=== PATIENT | female | born 1995 | race Caucasian/White ===

== ENCOUNTER 2019-03-15 01:23 | Emergency (ER) | payer OTHER ==
[2019-03-15] MEDS ORDERED: NA CHLORIDE 0.9% 1,000 ML ONE (01:55)
[2019-03-15] MEDS ORDERED: ONDANSETRON 4 MG/2 ML VIAL ONE (01:55)
[2019-03-15 02:37] LABS: Basophils % 1.2 % (0-1.3); Hematocrit 40.8 % (36.0-45.0); Lymphocytes % 24.2 % (15.3-44.8); MPV 8.2 fL (7.6-11.3); RBC Red Blood Cell Count 4.62 M/uL (3.86-4.86)
[2019-03-15 02:41] LABS: Urine Blood TRACE (NEG); Urine Glucose NEGATIVE (NEG); Urine Protein 1+ (NEG); Urine Specific Gravity >1.030 (1.005-1.030)
[2019-03-15 02:52] LABS: ALT/SGPT 44 U/L (12-78); AST/SGOT 23 U/L (15-37); Albumin 3.8 g/dL (3.4-5.0); Alkaline Phosphatase 114 U/L (45-117); BUN Blood Urea Nitrogen 6 mg/dL (7-18); Bicarbonate 24 mmol/L (21-32); Bilirubin Direct 0.2 mg/dL (0-0.2); Bilirubin Total 0.8 mg/dL (0.2-1.0); Glucose Level 86 mg/dL (74-106); Lipase 108 U/L (73-393); Potassium 3.6 mmol/L (3.5-5.1); Protein, Total 8.3 g/dL (6.4-8.2); Sodium Level 138 mmol/L (136-145)
--- NOTE | 2019-03-15 03:26 | ER ---
Nurse's Notes [facility] Name: Jaycee Scherer Age: 23 yrs Sex: Female : 1995 Arrival Date: 03/15/2019 Time: 01:26 Bed 5 Private MD: Diagnosis: Vomiting Presentation: 03/15 01:39 Presenting complaint: Patient states: N/V and anxiety attack since approx 2030 last aa1 night. Transition of care: patient was not received from another setting of care. Onset of symptoms was March 14, 2019 at 20:30. Risk Assessment: Do you want to hurt yourself or someone else? Patient reports no desire to harm self or others. Initial Sepsis Screen: Does the patient meet any 2 criteria? No. Patient's initial sepsis screen is negative. Does the patient have a suspected source of infection? No. Patient's initial sepsis screen is negative. Care prior to arrival: None. 01:39 Method Of Arrival: Ambulatory aa1 01:39 Acuity: GISEL 3 aa1 Triage Assessment: 01:39 General: Appears in no apparent distress. comfortable, Behavior is calm, cooperative, aa1 appropriate for age. Pain: Denies pain. 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 - Social history:: Smoking status: Patient/guardian denies using tobacco. - Ebola Screening: : No symptoms or risks identified at this time. Screenin:21 Abuse screen: Denies threats or abuse. Denies injuries from another. Nutritional lp1 screening: No deficits noted. Tuberculosis screening: No symptoms or risk factors identified. Fall Risk None identified. Assessment: 02:20 General: Appears in no apparent distress. Behavior is calm, cooperative, appropriate lp1 for age. Pain: Complains of pain in abdomen. Neuro: Level of Consciousness is awake, alert, obeys commands, Oriented to person, place, time, situation. Cardiovascular: Patient's skin is warm and dry. Respiratory: Respiratory effort is even, unlabored. GI: Abdomen is non-distended, Bowel sounds present X 4 quads. Reports lower abdominal pain, upper abdominal pain, nausea, vomiting. : No signs and/or symptoms were reported regarding the genitourinary system. EENT: No signs and/or symptoms were reported regarding the EENT system. Derm: Skin is pink, warm \T\ dry. Musculoskeletal: No deficits noted. 03:56 Reassessment: Patient and/or family updated on plan of care and expected duration. Pain ea level reassessed. Patient is alert, oriented x 3, equal unlabored respirations, skin warm/dry/pink. Discharge instruction given to patient, verbalized the understanding of instruction. Pt left ED ambulatory, with significant other, pt tolerating well. Vital Signs: 01:39 BP 114 / 70; Pulse 94; Resp 18; Temp 98.7; Pulse Ox 96% on R/A; Weight 99.79 kg; Height aa1 5 ft. 7 in. (170.18 cm); Pain 0/10; 02:30 BP 120 / 79; Pulse 80; Resp 16; Pulse Ox 97% on R/A; lp1 03:30 BP 116 / 76; Pulse 83; Resp 16; Pulse Ox 96% on R/A; lp1 03:57 BP 121 / 76; Pulse 80; Resp 18; Temp 97.8; Pulse Ox 98% on R/A; ea 01:39 Body Mass Index 34.46 (99.79 kg, 170.18 cm) aa1 ED Course: 01:26 Patient arrived in ED. ds1 01:34 Braxton Reese PA is PHCP. jmm 01:34 Otto Rollins MD is Attending Physician. jmm 01:39 Arm band placed on right wrist. Patient placed in an exam room, on a stretcher. aa1 01:45 Mansi Davis, AUBREY is Primary Nurse. lp1 01:48 Triage completed. aa1 02:05 Missed attempt(s): 22 gauge in right antecubital area. Inserted saline lock: 20 gauge lp1 in left antecubital area, using aseptic technique. Blood collected. 02:21 Patient has correct armband on for positive identification. Pulse ox on. NIBP on. lp1 03:23 Medhat Billy MD is Referral Physician. jmm 03:57 No provider procedures requiring assistance completed. IV discontinued, intact, ea bleeding controlled, No redness/swelling at site. Pressure dressing applied. Administered Medications: 02:05 Drug: NS 0.9% 1000 ml Route: IV; Rate: 1 bolus; Site: left antecubital; lp1 03:50 Follow up: Response: No adverse reaction; IV Status: Completed infusion; IV Intake: ea 1000ml 02:15 Drug: Zofran 4 mg Route: IVP; Site: left antecubital; lp1 03:00 Follow up: Response: No adverse reaction ea 03:52 Drug: GI Cocktail without - (Maalox Suspension 30 ml, Lidocaine Liquid 2 % 15 ea ml) Route: PO; 03:59 Follow up: Response: Medication administered at discharge. ea Intake: 03:50 IV: 1000ml; Total: 1000ml. ea Outcome: 03:24 Discharge ordered by . celia 03:57 Discharged to home ambulatory, with significant other. ea 03:57 Condition: stable 03:57 Instructed on discharge instructions, follow up and referral plans. medication usage, Demonstrated understanding of instructions, follow-up care, medications, Prescriptions given X 2. 03:58 Patient left the ED. ea Signatures: Susana Campos RN RN aa1 Braxton Reese PA PA jmm Sanford, Demi ds1 Mansi Davis RN RN lp1 Agnieszka Muhammad RN RN ea
--- NOTE | 2019-03-15 03:28 | EDPHYS ---
Physician Documentation [facility] Name: Jaycee Scherer Age: 23 yrs Sex: Female : 1995 Arrival Date: 03/15/2019 Time: 01:26 Bed 5 Private MD: ED Physician Otto Rollins HPI: 03/15 01:41 This 23 yrs old Female presents to ER via Unassigned with complaints of jmm Vomiting, Anxiety. 01:41 The patient presents to the emergency department with nausea, vomiting. Onset: The jmm symptoms/episode began/occurred gradually, 3 week(s) ago. Possible causes: unknown. The symptoms are aggravated by nothing. The symptoms are alleviated by food . This is a 23 year old female with a history of anxiety that presents to the ED with complaints of vomiting beginning 3 week ago. Patient states she has not been able to eat in 2 days without vomiting. Denies diarrhea, denies fever. . 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 - Social history:: Smoking status: Patient/guardian denies using tobacco. - Ebola Screening: : No symptoms or risks identified at this time. ROS: 01:41 Constitutional: Negative for fever, chills, and weight loss, Cardiovascular: Negative jmm for chest pain, palpitations, and edema, Respiratory: Negative for shortness of breath, cough, wheezing, and pleuritic chest pain. 01:41 Abdomen/GI: Positive for abdominal pain, nausea and vomiting, Negative for diarrhea. 01:41 All other systems are negative. Exam: 01:41 Constitutional: This is a well developed, well nourished patient who is awake, alert, jmm and in no acute distress. Head/Face: atraumatic. Eyes: EOMI, no conjunctival erythema appreciated ENT: Moist Mucus Membranes Neck: Trachea midline, Supple Chest/axilla: Normal chest wall appearance and motion. Cardiovascular: Regular rate and rhythm. No edema appreciated Respiratory: Normal respirations, no respiratory distress appreciated Abdomen/GI: Non distended, soft Back: Normal ROM Skin: General appearance color normal MS/ Extremity: Moves all extremities, no obvious deformities appreciated, no edema noted to the lower extremities Neuro: Awake and alert, normal gait Psych: Behavior is normal, Mood is normal, Patient is cooperative and pleasant Vital Signs: 01:39 BP 114 / 70; Pulse 94; Resp 18; Temp 98.7; Pulse Ox 96% on R/A; Weight 99.79 kg; Height aa1 5 ft. 7 in. (170.18 cm); Pain 0/10; 02:30 BP 120 / 79; Pulse 80; Resp 16; Pulse Ox 97% on R/A; lp1 03:30 BP 116 / 76; Pulse 83; Resp 16; Pulse Ox 96% on R/A; lp1 03:57 BP 121 / 76; Pulse 80; Resp 18; Temp 97.8; Pulse Ox 98% on R/A; ea 01:39 Body Mass Index 34.46 (99.79 kg, 170.18 cm) aa1 MDM: 01:40 Patient medically screened. [facility] 01:44 Data reviewed: vital signs, nurses notes. [facility] 03:22 Data reviewed: lab test result(s). Counseling: I had a detailed discussion with the [facility] patient and/or guardian regarding: the historical points, exam findings, and any diagnostic results supporting the discharge/admit diagnosis, lab results, the need for outpatient follow up, to return to the emergency department if symptoms worsen or persist or if there are any questions or concerns that arise at home. ED course: No abdominal pain on reexamination. Patient tolerates PO. patient advised to follow up with GI and otherwise given strict return precautions. Patient understood and agrees with the plan of care. . 03/15 01:41 Order name: Basic Metabolic Panel; Complete Time: 03:25 [facility] 03/15 01:41 Order name: CBC with Diff [facility] 03/15 01:41 Order name: Creatinine for Radiology [facility] 03/15 01:41 Order name: Hepatic Function; Complete Time: 03:25 [facility] 03/15 01:41 Order name: Lipase; Complete Time: 03:25 [facility] 03/15 02:16 Order name: Urine Dipstick--Ancillary (enter results) [facility] 03/15 02:16 Order name: Urine --Ancillary (enter results) [facility] 03/15 02:41 Order name: CBC with Automated Diff; Complete Time: 02:41 [facility] 03/15 02:43 Order name: Urine --Ancillary; Complete Time: 03:25 [facility] 03/15 02:43 Order name: Urine Dipstick-Ancillary; Complete Time: 03:25 [facility] 03/15 02:51 Order name: Creatinine (Radiology Only) [facility] 03/15 01:41 Order name: IV Saline Lock; Complete Time: 02:19 [facility] 03/15 01:41 Order name: Labs collected and sent; Complete Time: 02:19 [facility] 03/15 01:41 Order name: Urine Dipstick-Ancillary (obtain specimen); Complete Time: 02:19 [facility] Administered Medications: 02:05 Drug: NS 0.9% 1000 ml Route: IV; Rate: 1 bolus; Site: left antecubital; lp1 03:50 Follow up: Response: No adverse reaction; IV Status: Completed infusion; IV Intake: ea 1000ml 02:15 Drug: Zofran 4 mg Route: IVP; Site: left antecubital; lp1 03:00 Follow up: Response: No adverse reaction ea 03:52 Drug: GI Cocktail without - (Maalox Suspension 30 ml, Lidocaine Liquid 2 % 15 ea ml) Route: PO; 03:59 Follow up: Response: Medication administered at discharge. ea Disposition: 06:54 Co-signature as Attending Physician, Otto Rollins MD I agree with the assessment and tw4 plan of care. Disposition: 03/15/19 03:24 Discharged to Home. Impression: Vomiting. - Condition is Stable. - Discharge Instructions: Nausea and Vomiting, Adult. - Prescriptions for Zofran ODT 4 mg Oral tablet,disintegrating - place 1 tablet by TRANSLINGUAL route every 4-6 hours; 20 tablet. Carafate 1 gram Oral Tablet - take 1 tablet by ORAL route 4 times per day take on an empty stomach, beginning on waking and last dose at bedtime; 100 tablet. - Medication Reconciliation Form, Thank You Letter, Antibiotic Education, Prescription Opioid Use, Work release form form. - Follow up: Medhat Billy MD; When: 1 - 2 days; Reason: Recheck today's complaints, Continuance of care, Re-evaluation by your physician. Signatures: Dispatcher [employer] EDSusana Fofana, RN RN aa1 Braxton Reese PA PA jmm Pena, Laura, RN RN lp1 Agnieszka Muhammad RN RN Otto Davidson MD MD tw4 Corrections: (The following items were deleted from the chart) 03:58 03:24 03/15/2019 03:24 Discharged to Home. Impression: Vomiting. Condition is Stable. ea Forms are Medication Reconciliation Form, Thank You Letter, Antibiotic Education, Prescription Opioid Use. Follow up: Medhat Billy; When: 1 - 2 days; Reason: Recheck today's complaints, Continuance of care, Re-evaluation by your physician. celia
[2019-03-15] MEDS ORDERED: MAGNE/ALUM HYDROXD 30 ML UCUP ONE (03:48)
[2019-03-15] MEDS ORDERED: LIDOCAINE VISCOUS 2% SOLN 15 ML UDC ONE (03:48)
[2019-03-15 04:08] VITALS: BP 121/76; TEMP 97.8; O2SAT 98
== END 2019-03-15 03:58 | disposition home or self-care (01) ==
LOC: ER 01:23
DX: R11.10 Vomiting, unspecified (principal); F41.9 Anxiety disorder, unspecified
CPT/HCPCS: 96361; 85025; 80048; 36415; 81025; 80076; 81003; 83690; 96374; 99284; J7030; J2405